=== PATIENT | male | born 1945 | race Two or more races ===

== ENCOUNTER 2022-12-14 11:15 | Inpatient (IN) | payer OTHER ==
[~2022-12-14] VITALS: Ht 177.8 cm; Wt 79.8 kg
[2022-12-14] MEDS ORDERED: ATACAND HCT 321 EAC1 PO (11:26)
[2022-12-14] MEDS ORDERED: XANAX2 MG PO (11:26)
[2022-12-14] MEDS ORDERED: TOPROL XL50 M1 PO (11:26)
[2022-12-14] MEDS ORDERED: TRAMADOL HCL E100 MG PO (11:26)
[2022-12-14] MEDS ORDERED: CRESTOR10 MG PO (11:27)
[2022-12-14] MEDS ORDERED: IMODIUM A-1 MG/7.5 M PO (11:28)
[2022-12-14] MEDS ORDERED: ARICEPT10 MG PO (11:28)
[2022-12-14] MEDS ORDERED: NAMENDA10 MG PO (11:28)
[2022-12-14] MEDS ORDERED: TYLENOL ARTHRI650 MG PO (11:29)
[2022-12-22] MEDS ORDERED: BUPROPION XL300 MG (13:21)
[2022-12-22] MEDS ORDERED: SERTRALINE HCL100 MG (13:21)
[2022-12-22] MEDS ORDERED: TADALAFIL20 MG (13:21)
[2022-12-22] MEDS ORDERED: MELOXICAM15 MG (13:21)
[2022-12-22] MEDS ORDERED: ELIQUIS2.5 MG PO (17:09)
[2022-12-22] MEDS ORDERED: DUI500 PO (17:09)
[2022-12-22] MEDS ORDERED: PERCOCET 5-3251 EACH PO (17:09)
[2022-12-23] MEDS ORDERED: PERCOCET 5-3251 EACH PO (07:58)
[2022-12-23] MEDS ORDERED: DUI500 PO (07:58)
[2022-12-23] MEDS ORDERED: ELIQUIS2.5 MG PO (07:58)
== END 2022-12-23 12:39 | DRG 470 ==
LOC: O/R 12-20 06:18 → SURG 12-20 06:18 → SURH 12-20 11:00 → SURG 12-23 12:39
PROVIDERS: ADMIT Orthopaedic Surgery; ATTEND Orthopaedic Surgery
PROC: 0MNP0ZZ Release Left Knee Bursa and Ligament, Open Approach (ICD-10-PCS; 2022-12-20)
PROC: 0SRD0J9 Replacement of Left Knee Joint with Synthetic Substitute, Cemented, Open Approach (ICD-10-PCS; principal; 2022-12-20 11:00)
DX: M17.12 Unilateral primary osteoarthritis, left knee (principal); M22.12 Recurrent subluxation of patella, left knee

== ENCOUNTER 2023-07-04 09:45 | Inpatient (IN) | payer OTHER ==
[~2023-07-04] VITALS: Ht 177.8 cm; Wt 79.8 kg
[~2023-07-04 09:45] MED LIST: ARICEPT10 MG PO; ATACAND HCT 321 EAC1 PO; BUPROPION XL300 MG; CRESTOR10 MG PO; DUI500 PO; ELIQUIS2.5 MG PO; IMODIUM A-1 MG/7.5 M PO; MELOXICAM15 MG; NAMENDA10 MG PO; PERCOCET 5-3251 EACH PO; SERTRALINE HCL100 MG; TADALAFIL20 MG; TOPROL XL50 M1 PO; TRAMADOL HCL E100 MG PO; TYLENOL ARTHRI650 MG PO; XANAX2 MG PO
[2023-07-04 11:30] LABS: PH,URINE 5.5 (5.0-8.0); URINE APPEARANCE Clear; URINE BILIRRUBIN Negative (NEGATIVE); URINE BLOOD Negative; URINE COLOR Yellow; URINE GLUCOSE Negative (NEGATIVE); URINE LEUKOCYTE Negative; URINE NITRATE Negative; URINE PROTEIN Negative (NEGATIVE); URINE UROBILINOGEN 0.2 E.U./dl
[2023-07-04 11:34] LABS: URINE EPITHELIAL CELLS 2.9 uL (0.0-38.8); URINE RBC 2.5 uL (0.0-20.8); URINE WBC 2.4 uL (0.0-23.2)
[2023-07-04 11:38] LABS: HEMATOCRIT 45.6 % (39.0-48.0); HEMOGLOBIN 14.9 g/dL (13-16.00); MEAN CELL VOLUME 91.9 fL (80.0-100.00); MEAN CORPUSCULAR HEMOGLOBIN 30.1 pg (27.00-32.0); MEAN CORPUSCULAR HGB CONC 32.7 g/dl (32.0-36.0); PLATELET COUNT 186 K/uL (150-450); RED BLOOD COUNT 4.96 M/uL (4.00-6.00); RED CELL DISTRIBUTION WIDTH 14.3 % (11.5-14.5)
[2023-07-04 11:53] LABS: ALBUMIN 3.7 gm/dL (3.4-5.0); BILIRUBIN TOTAL 0.75 mg/dL (0.3-1.2); CALCIUM 9.6 mg/dL (8.5-10.1); CREATININE SERUM 1.21 mg/dL (0.70-1.30); GFR 57.85; GLOBULINA 3.6 G/DL (2.4-3.5); POTASSIUM 4.1 mEq/L (3.5-5.1); TOTAL PROTEIN 7.3 gm/dL (6.4-8.2)
[2023-07-04 11:58] LABS: INR 1.08; PROTHROMBIN TIME 11.3 SECONDS (9.0-11.5)
[2023-07-04] MEDS ORDERED: XANAX2 MG PO (12:07)
[2023-07-04] MEDS ORDERED: ATORVASTATIN CA10 MG PO (12:08)
[2023-07-12] MEDS ORDERED: DUI500 PO (08:05)
[2023-07-12] MEDS ORDERED: PERCOCET 5-3251 EACH PO (08:05)
[2023-07-12] MEDS ORDERED: ELIQUIS2.5 MG PO (08:05)
[2023-07-12 08:08] LABS: HEMATOCRIT 36.5 % (39.0-48.0); HEMOGLOBIN 12.6 g/dL (13-16.00); MEAN CORPUSCULAR HEMOGLOBIN 31.1 pg (27.00-32.0); MEAN CORPUSCULAR HGB CONC 34.5 g/dl (32.0-36.0); PLATELET COUNT 164 K/uL (150-450); RED BLOOD COUNT 4.06 M/uL (4.00-6.00); RED CELL DISTRIBUTION WIDTH 13.8 % (11.5-14.5)
[2023-07-13 06:57] LABS: HEMATOCRIT 35.8 % (39.0-48.0); HEMOGLOBIN 12.4 g/dL (13-16.00); MEAN CORPUSCULAR HEMOGLOBIN 31.1 pg (27.00-32.0); MEAN CORPUSCULAR HGB CONC 34.5 g/dl (32.0-36.0); PLATELET COUNT 152 K/uL (150-450); RED BLOOD COUNT 3.98 M/uL (4.00-6.00); RED CELL DISTRIBUTION WIDTH 13.5 % (11.5-14.5)
== END 2023-07-13 16:37 | DRG 467 ==
LOC: O/R 07-11 06:25 → SURH 07-11 06:25
PROVIDERS: ADMIT Orthopaedic Surgery; ATTEND Orthopaedic Surgery
PROC: 0SND0ZZ Release Left Knee Joint, Open Approach (ICD-10-PCS; 2023-07-11)
PROC: 0QU70JZ Supplement Left Upper Femur with Synthetic Substitute, Open Approach (ICD-10-PCS; 2023-07-11)
PROC: 0SWD0JZ Revision of Synthetic Substitute in Left Knee Joint, Open Approach (ICD-10-PCS; principal; 2023-07-11 07:00)
DX: T84.032A Mechanical loosening of internal right knee prosthetic joint, initial encounter (principal); D62 Acute posthemorrhagic anemia; T84.018A Broken internal joint prosthesis, other site, initial encounter; M17.12 Unilateral primary osteoarthritis, left knee; I10 Essential (primary) hypertension; M23.8X2 Other internal derangements of left knee; M85.462 Solitary bone cyst, left tibia and fibula